=== PATIENT | male | born 1940 | race Caucasian/White ===

== ENCOUNTER 2017-09-27 06:39 | Inpatient (IN) | payer OTHER ==
[~2017-09-27] VITALS: Ht 175.3 cm; Wt 100.7 kg
[2017-09-27] MEDS ORDERED: THROMBIN 5,000 UNIT VIAL TP ONE (07:10)
[2017-09-27] MEDS ORDERED: methylPREDNISolone SOD SUCC 125 MG/2 ML ONE (07:10)
[2017-09-27] MEDS ORDERED: BACITRACIN 50,000 UNIT ONE (07:10)
[2017-09-27] MEDS ORDERED: EPINEPHRINE 1 MG/ML, 1ML ONE (07:10)
[2017-09-27] MEDS ORDERED: BUPIVACAINE/PF 0.5% ONE (07:10)
[2017-09-27] MEDS ORDERED: LACTATED RINGERS 1,000 ML IV SCH (08:04)
[2017-09-27 08:14] VITALS: BP 152/83
[2017-09-27] MEDS ORDERED: PLEASE ENTER ALLERGIES MC SCH (08:30)
[2017-09-27] MEDS ORDERED: LIDOCAINE-MPF 1%, 2ML INFIL ONE (08:30)
[2017-09-27] MEDS: PLEASE ENTER HEIGHT AND WEIGHT MC SCH ×2 (08:30→16:30)
[2017-09-27] MEDS ORDERED: GLIM2TAB2 PO (08:35)
[2017-09-27] MEDS ORDERED: LOSA50TA6 PO (08:35)
[2017-09-27] MEDS ORDERED: DICL50TA4 PO (08:35)
[2017-09-27] MEDS ORDERED: METF500T4 PO (08:35)
[2017-09-27] MEDS ORDERED: PRAV40TA2 PO (08:35)
[2017-09-27] MEDS ORDERED: DOXA8TAB63 PO (08:35)
[2017-09-27] MEDS ORDERED: HYDR-879 PO (08:39)
[2017-09-27] MEDS ORDERED: REMIFENTANIL 2 MG ONE (10:11)
[2017-09-27] MEDS ORDERED: NEOSTIGMINE 1 MG/ML, 10ML ONE (10:16)
[2017-09-27] MEDS ORDERED: KETOROLAC 30 MG/1 ML ONE (10:16)
[2017-09-27] MEDS ORDERED: PROPOFOL 10 MG/ML, 20ML ONE (10:36)
[2017-09-27] MEDS ORDERED: CEFAZOLIN 1,000 MG ONE ×2 (10:36)
[2017-09-27] MEDS ORDERED: ROCURONIUM 10MG/ML,5ML ONE (10:36)
[2017-09-27] MEDS ORDERED: LIDOCAINE-MPF 2% ,5ML ONE (10:36)
[2017-09-27] MEDS ORDERED: PHENYLEPHRINE 10 MG/ML ONE ×2 (10:54→12:01)
[2017-09-27] MEDS ORDERED: VANCOMYCIN 1,000 MG ONE (11:49)
[2017-09-27] MEDS ORDERED: MEPERIDINE/PF 25MG/0.5ML IVPush PRN ×2 (12:00→13:30)
[2017-09-27] MEDS ORDERED: ACETAMINOPHEN 325 MG TABLET PO PRN (12:00)
[2017-09-27] MEDS ORDERED: OXYcodone 5 MG/5 ML ORAL.SOL UDC PO PRN ×2 (12:00→13:30)
[2017-09-27] MEDS ORDERED: FENTANYL PF 100 MCG/2ML IV PRN ×2 (12:00→13:30)
[2017-09-27] MEDS ORDERED: HYDROcodone/APAP 7.5-325MG/15ML UDC PO PRN (12:00)
[2017-09-27] MEDS ORDERED: DEXAMETHASONE 4 MG/ML, 1ML ONE ×2 (12:04)
[2017-09-27] MEDS ORDERED: FENTANYL PF 100 MCG/2ML ONE (12:49)
[2017-09-27] MEDS ORDERED: ONDANSETRON 4 MG TABLET PO PRN (13:00)
[2017-09-27] MEDS ORDERED: PROMETHAZINE 12.5 MG SUPP PR PRN (13:30)
[2017-09-27] MEDS ORDERED: MAGNESIUM HYDROXIDE 8%, 30ML UDC PO PRN (13:30)
[2017-09-27] MEDS ORDERED: LABETALOL 5MG/ML, 20ML IVPush PRN (13:30)
[2017-09-27] MEDS ORDERED: HYDROmorphone PCA 30 MG/30 ML IV PRN (13:30)
[2017-09-27] MEDS ORDERED: hydrALAzine 20 MG/ML, 1ML IV PRN (13:30)
[2017-09-27] MEDS ORDERED: morphine SULFATE 10 MG/ML, 1ML IV PRN (13:30)
[2017-09-27] MEDS ORDERED: PHARMACY MAY ADJ FOR RENAL FX MC PRN (13:30)
[2017-09-27] MEDS ORDERED: BISACODYL 10 MG SUPP PR PRN (13:30)
[2017-09-27] MEDS ORDERED: ONDANSETRON 2MG/ML, 2ML IVPush PRN ×2 (13:30)
[2017-09-27] MEDS ORDERED: SENNA/DOCUSATE TABLET PO PRN (13:30)
[2017-09-27] MEDS ORDERED: HYDROmorphone 2MG TABLET PO PRN (13:30)
[2017-09-27] MEDS ORDERED: PROMETHAZINE 25 MG/ML, 1ML IM PRN (13:30)
[2017-09-27] MEDS ORDERED: INSULIN REGULAR 100 UNITS/ML, 3ML VIAL SQ-INSULIN PRN (13:30)
[2017-09-27] MEDS ORDERED: HYDROcodone/APAP 10/325 MG TABLET PO PRN (13:30)
[2017-09-27] MEDS ORDERED: DIPHENHYDRAMINE 50 MG CAPSULE PO PRN (13:30)
[2017-09-27] MEDS ORDERED: ALBUTEROL SULFATE 2.5 MG/3 ML NPPB PRN (13:30)
[2017-09-27] MEDS ORDERED: MIDAZOLAM 1 MG/ML, 2ML IV PRN (13:30)
[2017-09-27] MEDS ORDERED: LABETALOL 5MG/ML, 20ML IV PRN (13:30)
[2017-09-27] MEDS ORDERED: morphine SULFATE 10 MG/ML, 1ML ONE ×2 (13:33→14:21)
[2017-09-27] MEDS ORDERED: MEPERIDINE/PF 25MG/0.5ML ONE (13:33)
[2017-09-27] MEDS: morphine SULFATE 10 MG/ML, 1ML IV PRN ×6 (13:47→14:58)
[2017-09-27] MEDS ORDERED: HYDROmorphone PCA 30 MG/30 ML ONE (14:21)
[2017-09-27] MEDS ORDERED: HYDROcodone/APAP 7.5-325MG/15ML UDC ONE (14:22)
[2017-09-27 19:49] VITALS: BP 109/63
[2017-09-27] MEDS: NS + 20MEQ KCL 1,000 ML IV SCH (20:40)
[2017-09-27] MEDS: CEFAZOLIN PMX 1GM/50ML 50 ML IVPB SCH (20:40)
[2017-09-27] MEDS: metFORMIN 500 MG TABLET PO SCH (20:41)
[2017-09-27] MEDS: PRAVASTATIN 40 MG TABLET PO SCH (20:41)
[2017-09-27] MEDS: SODIUM CHLORIDE FLUSH 10ML SYR IVF SCH (20:41)
[2017-09-28] MEDS: PLEASE ENTER HEIGHT AND WEIGHT MC SCH ×3 (00:30→11:44)
[2017-09-28] MEDS: CEFAZOLIN PMX 1GM/50ML 50 ML IVPB SCH (04:10)
[2017-09-28 04:12] VITALS: BP 122/60
[2017-09-28 05:08] LABS: BASOPHILS # (AUTO) 0.02 x10^3/uL (0-0.1); BASOPHILS % (AUTO) 0 % (0-1); EOSINOPHILS % (AUTO) 1 % (1-7); LYMPHOCYTES # (AUTO) 1.36 x10^3/uL (1-3.4); LYMPHOCYTES % (AUTO) 16 % (22-44); MD NO; MEAN CORPUSCULAR HEMOGLOBIN 30.2 pg (27.5-34.5); MEAN CORPUSCULAR HGB CONC 33.9 g/dL (33.2-36.2); MEAN CORPUSCULAR VOLUME 89.1 fL (81-97); MEAN PLATELET VOLUME 7.2 fL (7.4-10.4); MONOCYTES # (AUTO) 0.86 x10^3/uL (0.2-0.8); MONOCYTES % (AUTO) 10 % (2-9); NEUTROPHILS # (AUTO) 6.08 x10^3/uL (1.8-6.8); NEUTROPHILS % (AUTO) 72 % (42-75); PLATELET COUNT 265 x10^3/uL (130-400); RED BLOOD COUNT 3.49 x10^6/uL (4.38-5.82); RED CELL DISTRIBUTION WIDTH 14.1 % (9.4-14.8)
[2017-09-28 05:15] LABS: CHLORIDE 109 mmol/L (98-107)
[2017-09-28 05:19] LABS: ALBUMIN 3.2 g/dL (3.4-5.0); ANION GAP 8 mmol/L (5-15); CREATININE 1.19 mg/dL (0.7-1.3)
[2017-09-28] MEDS: NS + 20MEQ KCL 1,000 ML IV SCH ×2 (07:30→17:30)
[2017-09-28] MEDS: CYCLOBENZAPRINE 10 MG TABLET PO PRN ×2 (08:21→20:01)
[2017-09-28 08:24] VITALS: BP 126/65
[2017-09-28] MEDS: LOSARTAN 50MG TABLET PO SCH (08:26)
[2017-09-28] MEDS: metFORMIN 500 MG TABLET PO SCH ×2 (08:32→20:16)
[2017-09-28] MEDS: DOXAZOSIN 2MG TABLET PO SCH (08:32)
[2017-09-28] MEDS: GLIMEPIRIDE 1 MG TABLET PO SCH (08:32)
[2017-09-28] MEDS: SODIUM CHLORIDE FLUSH 10ML SYR IVF SCH ×2 (09:00→20:16)
[2017-09-28] MEDS: OXYcodone/APAP 10/325MG TABLET PO PRN ×2 (09:06→12:57)
[2017-09-28 13:07] VITALS: BP 113/65
[2017-09-28] MEDS: HYDROcodone/APAP 5/325 TABLET PO PRN ×2 (17:34→21:42)
[2017-09-28 19:02] VITALS: BP 121/66
[2017-09-28] MEDS: PRAVASTATIN 40 MG TABLET PO SCH (20:15)
[2017-09-29] MEDS: PLEASE ENTER HEIGHT AND WEIGHT MC SCH ×4 (00:30→22:30)
[2017-09-29] MEDS: HYDROcodone/APAP 5/325 TABLET PO PRN ×3 (01:44→11:09)
[2017-09-29 02:53] VITALS: BP 154/72
[2017-09-29] MEDS: NS + 20MEQ KCL 1,000 ML IV SCH ×3 (03:30→22:30)
[2017-09-29] MEDS: CYCLOBENZAPRINE 10 MG TABLET PO PRN (04:38)
[2017-09-29 05:18] LABS: BASOPHILS # (AUTO) 0.05 x10^3/uL (0-0.1); BASOPHILS % (AUTO) 1 % (0-1); EOSINOPHILS # (AUTO) 0.11 x10^3/uL (0-0.4); EOSINOPHILS % (AUTO) 1 % (1-7); LYMPHOCYTES # (AUTO) 1.25 x10^3/uL (1-3.4); LYMPHOCYTES % (AUTO) 16 % (22-44); MD NO; MEAN CORPUSCULAR HEMOGLOBIN 29.9 pg (27.5-34.5); MEAN CORPUSCULAR HGB CONC 33.5 g/dL (33.2-36.2); MEAN CORPUSCULAR VOLUME 89.4 fL (81-97); MEAN PLATELET VOLUME 7.6 fL (7.4-10.4); MONOCYTES # (AUTO) 0.81 x10^3/uL (0.2-0.8); MONOCYTES % (AUTO) 10 % (2-9); NEUTROPHILS % (AUTO) 72 % (42-75); PLATELET COUNT 259 x10^3/uL (130-400); RED BLOOD COUNT 3.63 x10^6/uL (4.38-5.82); RED CELL DISTRIBUTION WIDTH 13.7 % (9.4-14.8)
[2017-09-29 07:05] VITALS: BP 135/63
[2017-09-29] MEDS: metFORMIN 500 MG TABLET PO SCH ×2 (08:10→20:49)
[2017-09-29] MEDS: DOXAZOSIN 2MG TABLET PO SCH (08:12)
[2017-09-29] MEDS: SODIUM CHLORIDE FLUSH 10ML SYR IVF SCH ×2 (08:13→20:49)
[2017-09-29] MEDS: GLIMEPIRIDE 1 MG TABLET PO SCH (08:13)
[2017-09-29] MEDS: LOSARTAN 50MG TABLET PO SCH (08:13)
[2017-09-29] MEDS: DIAZEPAM 5 MG TABLET PO PRN ×3 (08:29→20:49)
[2017-09-29 14:11] VITALS: BP 110/65
[2017-09-29] MEDS: OXYcodone/APAP 10/325MG TABLET PO PRN ×3 (15:19→23:51)
[2017-09-29 19:58] VITALS: BP 121/60
[2017-09-29] MEDS: PRAVASTATIN 40 MG TABLET PO SCH (20:49)
[2017-09-30] MEDS: OXYcodone/APAP 10/325MG TABLET PO PRN ×3 (04:03→12:30)
[2017-09-30 04:16] VITALS: BP 144/72
[2017-09-30] MEDS: DIAZEPAM 5 MG TABLET PO PRN ×2 (05:07→12:30)
[2017-09-30 05:09] LABS: BASOPHILS # (AUTO) 0.02 x10^3/uL (0-0.1); BASOPHILS % (AUTO) 0 % (0-1); EOSINOPHILS # (AUTO) 0.37 x10^3/uL (0-0.4); EOSINOPHILS % (AUTO) 5 % (1-7); LYMPHOCYTES # (AUTO) 1.25 x10^3/uL (1-3.4); LYMPHOCYTES % (AUTO) 18 % (22-44); MD NO; MEAN CORPUSCULAR HEMOGLOBIN 30.3 pg (27.5-34.5); MEAN CORPUSCULAR HGB CONC 34.1 g/dL (33.2-36.2); MEAN CORPUSCULAR VOLUME 88.7 fL (81-97); MEAN PLATELET VOLUME 7.2 fL (7.4-10.4); MONOCYTES # (AUTO) 0.66 x10^3/uL (0.2-0.8); MONOCYTES % (AUTO) 9 % (2-9); NEUTROPHILS # (AUTO) 4.75 x10^3/uL (1.8-6.8); NEUTROPHILS % (AUTO) 67 % (42-75); PLATELET COUNT 259 x10^3/uL (130-400); RED BLOOD COUNT 3.61 x10^6/uL (4.38-5.82); RED CELL DISTRIBUTION WIDTH 13.5 % (9.4-14.8)
[2017-09-30 07:48] VITALS: BP 132/68
[2017-09-30] MEDS: PLEASE ENTER HEIGHT AND WEIGHT MC SCH (08:30)
[2017-09-30] MEDS: metFORMIN 500 MG TABLET PO SCH (08:55)
[2017-09-30] MEDS: SODIUM CHLORIDE FLUSH 10ML SYR IVF SCH (08:55)
[2017-09-30] MEDS: NS + 20MEQ KCL 1,000 ML IV SCH (08:57)
[2017-09-30] MEDS: GLIMEPIRIDE 1 MG TABLET PO SCH (08:57)
[2017-09-30] MEDS: DOXAZOSIN 2MG TABLET PO SCH (08:58)
[2017-09-30] MEDS: LOSARTAN 50MG TABLET PO SCH (08:58)
[2017-09-30 12:42] VITALS: BP 134/71
[2017-09-30] MEDS ORDERED: OXYC-307 PO (13:41)
[2017-09-30] MEDS ORDERED: DIAZ5TAB PO (13:42)
== END 2017-09-30 14:00 | disposition home or self-care (01) | DRG 455 ==
LOC: ORIP 06:39 → 4NOR 15:49 → DCLOUNGE 09-30 13:39
PROVIDERS: ADMIT Neurological Surgery; ATTEND Neurological Surgery
PROC: 0SG00AJ Fusion of Lumbar Vertebral Joint with Interbody Fusion Device, Posterior Approach, Anterior Column, Open Approach (ICD-10-PCS; 2017-09-27)
PROC: 0ST20ZZ Resection of Lumbar Vertebral Disc, Open Approach (ICD-10-PCS; 2017-09-27)
PROC: 0SG0071 Fusion of Lumbar Vertebral Joint with Autologous Tissue Substitute, Posterior Approach, Posterior Column, Open Approach (ICD-10-PCS; 2017-09-27)
PROC: 0QS004Z Reposition Lumbar Vertebra with Internal Fixation Device, Open Approach (ICD-10-PCS; 2017-09-27)
PROC: 01NB0ZZ Release Lumbar Nerve, Open Approach (ICD-10-PCS; principal; 2017-09-27 09:30)
DX: M48.061 Spinal stenosis, lumbar region without neurogenic claudication (principal); G56.00 Carpal tunnel syndrome, unspecified upper limb; Z98.1 Arthrodesis status; M19.90 Unspecified osteoarthritis, unspecified site; M43.16 Spondylolisthesis, lumbar region
CPT/HCPCS: 36415; 72100; 80048; 82040; 82962; 85025; 86850; 86900; C1713; C1776; J0171; J0690; J1100; J1170; J1885; J2175; J2704; J2710; J3010; J3370; J3480; J3490; C1762; J2270; J2370; J2930; J7120

== ENCOUNTER → 2018-02-04 | Outpatient (CLI) | payer OTHER ==
[~2018-02-04] MED LIST: DIAZ5TAB PO; DICL50TA4 PO; DOXA8TAB63 PO; GLIM2TAB2 PO; HYDR-879 PO; LOSA50TA6 PO; METF500T5 PO; OXYC-307 PO; PRAV40TA2 PO
== END | disposition home or self-care (01) ==
LOC: RAD 08:17
PROVIDERS: ATTEND Neurological Surgery
DX: M47.894 Other spondylosis, thoracic region (principal); M54.16 Radiculopathy, lumbar region; I25.2 Old myocardial infarction
CPT/HCPCS: 72072; 93005